=== PATIENT | female | born 1965 | race Hispanic/Latino ===

== ENCOUNTER → 2022-12-09 | Outpatient (CLI) | payer BC | END | disposition home or self-care (01) | LOC: RAH 12-07 09:24 | PROVIDERS: ATTEND Internal Medicine | DX: I73.9 Peripheral vascular disease, unspecified (principal); I82.409 Acute embolism and thrombosis of unspecified deep veins of unspecified lower extremity | CPT/HCPCS: 93925; 93971 ==